=== PATIENT | male | born 2000 | race Hispanic/Latino ===

== ENCOUNTER 2024-01-27 20:51 | Emergency (ER) | payer OTHER ==
[~2024-01-27] VITALS: Ht 172.7 cm; Wt 86.6 kg
[2024-01-27 22:44] LABS: ADD UA MICROSCOPIC YES; APPEARANCE,URINE CLOUDY (CLEAR); BILIRUBIN,URINE 0.5 mg/dL (NEGATIVE); COLOR,URINE YELLOW (YELLOW); GLUCOSE, URINE (UA) NEGATIVE (NEGATIVE); KETONES,URINE 5 mg/dL (NEGATIVE); LEUKOCYTE ESTERASE ,URINE NEGATIVE Leu/uL (NEGATIVE); NITRATE,URINE NEGATIVE (NEGATIVE); OCCULT BLOOD,URINE NEGATIVE (NEGATIVE); PH,URINE 5.5 (5.0-8.0); PROTEIN,URINE 50 mg/dL (NEGATIVE)
[2024-01-27 22:45] LABS: BACTERIA,URINE FEW /HPF (None Seen); MUCUS,URINE MANY LPF (None Seen); RBC,URINE 0-1 /HPF (0-1); SQUAMOUS EPITHELIAL CELL,UR RARE /HPF (0-2)
[2024-01-27] MEDS: ondanSETRON ODT 4MG TAB SL ONE (22:53)
[2024-01-27] MEDS: ondanSETRON 4MG TABLET PO ONE (22:54)
--- NOTE | 2024-01-27 22:56 | ERN ---
ED Note History of Present Illness Stated Complaint: ABDOMINAL PAIN,VOMITING,PANIC ATTACKS,BLURRY VISIO Chief Complaint: Abdominal Pain Time Seen by MD: 22:11 Time Seen by Midlevel: 22:11 Dictation: 24-year-old male presents to the emergency department due to reported having chills, nausea, vomiting and diarrhea that began 4 hours prior to arrival. He states he has had approximately 6-8 episodes of vomiting. In regards to the diarrhea. He states that he has had countless amounts of diarrhea which is described as being watery with a greenish/yellowish coloration. Currently, he reports having no confirmed fever. He states that his girlfriend also had the similar symptoms but she has improved. Patient states that he does have a history of anxiety and PTSD and does not know whether this might be related to it also. Upon initial evaluation, the patient presents in no acute distress. 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: None Past Medical History Past Medical History: No Pertinent History Surgical History: None PSYCH History: anxiety, post traumatic stress Social History: Lives with family RN Note Reviewed/Agreed w/PFSH: Yes Review of System Dictation Constitutional: Chills Abdomen/GI: Nausea, vomiting, diarrhea Initial Vital Sign VS Vital Signs Date Time Temp Pulse Resp B/P (MAP) Pulse Ox O2 Delivery O2 Flow Rate FiO2 01/27/24 22:06 99.5 104 20 125/58 99 Room Air 01/27/24 22:54 0 21 Physical Exam Dictation General: awake, alert, NAD Head/Face: Normocephalic, atraumatic Eyes: PERRL, EOMI ENT: Oral mucosa moist Neck: Trachea midline, supple Cardiovascular: RRR, no edema Respiratory: Symmetrical, non-labored Abdomen: Soft, non-tender, non-distended, no guarding. Skin: Warm, dry, good turgor, no rash MS/Extremity: Pulses equal, no cyanosis, neurovascular intact, FROM Neuro: COAx4, GCS 15, steady gait, Psych: Normal behavior, mood, and affect normal Results (Laboratory/Radiology) Laboratory/Radiology Laboratory Tests Test 01/27/24 22:15 01/27/24 22:50 Urine Color YELLOW (YELLOW) Urine Appearance CLOUDY (CLEAR) H Urine pH 5.5 (5.0-8.0) Urine Specific [place] 1.040 (1.001-1.031) Urine Protein 50 mg/dL (NEGATIVE) H Urine Glucose (UA) NEGATIVE mg/dL (NEGATIVE) Urine Ketones 5 mg/dL (NEGATIVE) H Urine Occult Blood NEGATIVE (NEGATIVE) Urine Nitrate NEGATIVE (NEGATIVE) Urine Bilirubin 0.5 mg/dL (NEGATIVE) H Urine Urobilinogen 2.0 mg/dL (0.2-1.0) H Urine Leukocyte Esterase NEGATIVE Abby/uL Urine RBC 0-1 /HPF (0-1) Urine WBC 2-5 /HPF (0-1) H Urine Squamous Epithelial Cells RARE /HPF (0-2) Urine Bacteria FEW /HPF (None Seen) Influenza Type A Antigen Negative For Type A Influenza Type B Antigen Negative For Type B Labs Reviewed?: Yes ED Course ED Course Orders Procedure Category Date Status Time Vital Signs Per CPOE 01/27/24 Transmitted Routine 22:26 Urinalysis Profile LAB 01/27/24 Complete 22:26 Influenza Type A & B, LAB 01/27/24 Complete Rapid 22:35 Ondansetron Odt 4mg PHA 01/27/24 Complete Tab (Zofran 4mg Odt) 23:00 Orthostatic Vital CPOE 01/27/24 Transmitted Signs 22:35 Orthostatic Vital CPOE 01/27/24 Transmitted Signs 22:35 Ondansetron 4mg PHA 01/27/24 Complete Tablet (Zofran 4mg 23:00 Current Medications Medications (Trade) Dose Ordered Sig/Vannesa Route PRN Reason Start Time Stop Time Status Last Admin Dose Admin Ondansetron HCl (zoFRAN 4MG TABLET) 4 mg ONCE ONCE PO 01/27/24 23:00 01/27/24 23:01 DC Ondansetron HCl (zoFRAN 4MG ODT) 4 mg ONCE ONCE SL 01/27/24 23:00 01/27/24 23:01 DC 01/27/24 22:53 Vital Signs Date Time Temp Pulse Resp B/P (MAP) Pulse Ox O2 Delivery O2 Flow Rate FiO2 01/27/24 23:52 102 18 108/88 98 Room Air* 0 01/27/24 22:57 98.4 116 19 89/58 99 Room Air* 0 01/27/24 22:55 109 20 110/65 98 Room Air* 0 01/27/24 22:54 98.4 99 18 102/67 99 Room Air* 0 21 01/27/24 22:06 99.5 104 20 125/58 99 Room Air Medical Decision Making MDM MDM: Differential diagnosis: Acute gastroenteritis, viral gastroenteritis, food toxicity, mild dehydration. Rationale: Tests considered and ordered secondary to shared decision making include: Previous outside records reviewed: Old ER visits. Risk of complication and/or morbidity or mortality of patient management: None Medications-Per medication reconciliation Need for hospitalization: Patient does not meet criteria for hospitalization. Need for emergency major/minor surgery: No There are no social concerns with this patient. Prescription drug management Prescriptions will include symptomatic care new line new line patient was medicated with Zofran and was able to tolerate a fluid challenge for which he was able to improved significantly to the point of stating that she was able to produce urine. He was noted to have notable orthostatic vitals but that is improved after tolerating proximally 2-1/2 fluids orally. Patient is to be discharged home on oral Zofran and highly encouraged to continue with oral fluids for which he verbalized understanding and agrees with the treatment plan of care. Patient's prior external medical records from other ER visits were reviewed by me as indicated. Prior testing and results from previous visits were reviewed. Prior tests were taken into account with medical decision making and resource utilization, independent historian/historians were used to obtain complete medical history. I independently interpreted the test that were performed, results were reviewed by me and considered findings on radiology if ordered. Medical management and examination interpretation discussions were had by me with other qualified healthcare professionals as indicated for the patient's care. DX & DISP Disposition: Discharge Departure Impression: Primary Impression: Acute gastroenteritis Additional Impression: Mild dehydration Condition: Stable Scripts Ondansetron (Ondansetron Odt) 4 Mg Tab.rapdis 4 MG PO Q6HPRN PRN for nausea, #16 TAB 0 Refills Prov: TREVOR JUNG 01/28/24 Referrals: SELF,REFERRAL (PCP) I have reviewed the case, and I agree with, Diagnosis and Plan TREVOR JUNG Jan 27, 2024 22:56
[2024-01-27 22:57] VITALS: TEMP 98.4
[2024-01-27 23:11] LABS: INFLUENZA TYPE A Negative For Type A (NEGATIVE); INFLUENZA TYPE B Negative For Type B (NEGATIVE)
[2024-01-27 23:52] VITALS: BP 108/88; PULSE 102; RESP 18; O2SAT 98
[2024-01-28] MEDS ORDERED: ONDA-243 PO (00:04)
== END 2024-01-28 00:20 | disposition home or self-care (01) ==
LOC: EDH 20:51
DX: K52.9 Noninfective gastroenteritis and colitis, unspecified (principal); E86.0 Dehydration; F41.9 Anxiety disorder, unspecified
CPT/HCPCS: 81001; 87804